=== PATIENT | male | born 1995 | race Caucasian/White ===

== ENCOUNTER 2018-10-12 19:26 | Emergency (ER) | payer OTHER ==
[~2018-10-12] VITALS: Ht 190.5 cm; Wt 86.4 kg
[2018-10-12] MEDS ORDERED: ONDA8TAB6 PO (21:19)
[2018-10-12] MEDS ORDERED: IBUP-1984 PO (21:19)
[2018-10-12] MEDS ORDERED: ACET-2615 PO (21:19)
[2018-10-12] MEDS ORDERED: normal saline 1000ml 1,000 ML IV ONE ×2 (21:20→22:05)
[2018-10-12] MEDS ORDERED: ketorolac trometh. 30mg/ml inj. IV ONE (21:20)
[2018-10-12] MEDS ORDERED: acetaminophen 325mg tablet PO ONE (21:20)
[2018-10-12] MEDS ORDERED: proCHLORperazine 10 MG/2 ml inj IV ONE (21:20)
[2018-10-12 23:30] VITALS: BP 101/66
== END 2018-10-12 23:32 | disposition home or self-care (01) ==
LOC: ER 19:28
DX: S06.0X0A Concussion without loss of consciousness, initial encounter (principal); W22.8XXA Striking against or struck by other objects, initial encounter; Y93.89 Activity, other specified; Y92.89 Other specified places as the place of occurrence of the external cause; Y99.8 Other external cause status
CPT/HCPCS: 96361; 96374; 96375; 99283; J0780; J1885; J7030